=== PATIENT | female | born 1970 | race African-American/Black ===

== ENCOUNTER 2016-08-04 18:41 | Emergency (ER) | payer MEDICAID, OTHER ==
[~2016-08-04] VITALS: Ht 167.6 cm; Wt 113.4 kg
[2016-08-04 19:24] LABS: DEFINITIVE VIEW TRANSMISSION; Hematocrit 36.7 % (36.0-46.0); Hemoglobin 11.4 g/dL (12.2-16.2); Mean Corpuscular Hemoglobin 19.7 pg (28.0-32.0); Mean Corpuscular Volume 63.6 fL (80.0-100.0); Mean Platelet Volume 9.4 fL (7.4-10.4); Platelet Count (auto) 403 10^3/uL (140-450); Red Cell Distribution Width 17.1 % (11.6-16.0); White Blood Cell 9.6 10^3/uL (4.4-10.8)
[2016-08-04 19:32] LABS: Metamyelocytes % 0; Myelocytes % 0; Promyelocytes % 0; Reactive Lymphocytes 0
[2016-08-04] MEDS ORDERED: cloNIDine HCL 0.1 MG TAB PO ONE (19:45)
[2016-08-04 19:59] LABS: Albumin 3.6 g/dL (3.4-5.0); Anion Gap 9 (5-15); Blood Urea Nitrogen 6 mg/dL (7-18); Calcium 8.8 mg/dL (8.5-10.1); Carbon Dioxide 25 mmol/L (21-32); Chloride 106 mmol/L (98-107); Glucose 92 mg/dL (74-106); Potassium 3.8 mmol/L (3.5-5.1); Sodium 140 mmol/L (136-145)
[2016-08-04 20:01] LABS: BUN/Creatinine Ratio 6.3; GFR African American 81 mL/min; GFR Non-African American 67 mL/min
[2016-08-04 20:15] LABS: Alkaline Phosphatase 41 U/L (45-117); Aspartate Aminotransferase 17 U/L (15-37); Bilirubin, Total 0.4 mg/dL (0.2-1.0); Total Protein 8.4 g/dL (6.4-8.2)
[2016-08-04 20:16] LABS: Anisocytosis Moderate; Hypochromia Moderate; Microcytosis Marked; Ovalocytes FEW; Platelet Estimate Adequate
[2016-08-04 20:17] LABS: Tear Drop Cells FEW
[2016-08-05 08:21] VITALS: BP 163/97
[2016-08-05] MEDS ORDERED: cloNIDine 0.2 MG/24 HR PAT TD ONE (08:30)
[2016-08-05] MEDS ORDERED: cloNIDine HCL 0.1 MG TAB PO ONE (08:45)
== END 2016-08-05 09:34 | disposition home or self-care (01) ==
LOC: ER 18:43
DX: I10 Essential (primary) hypertension (principal); M54.5 Low back pain; G89.29 Other chronic pain
CPT/HCPCS: 36415; 80053; 84484; 85007; 85027; 93005